=== PATIENT | female | born 1995 | race Hispanic/Latino ===

== ENCOUNTER 2018-07-11 19:27 | Emergency (ER) | payer SELFPAY ==
[~2018-07-11] VITALS: Ht 172.7 cm; Wt 131.5 kg
[~2018-07-11 19:27] MED LIST: NORCO 7.5-3251 EACH PO
--- NOTE | 2018-07-12 00:39 | Diagnostic Imaging Report ---
SACRUM COCCYX HISTORY: Tailbone pain. COMPARISON: None available. FINDINGS: Bones: No acute displaced fracture. Osseous alignment is within normal limits. Joints: The joint spaces are well-maintained. Soft tissues: The soft tissues appear unremarkable. IMPRESSION: No acute radiographic abnormality. Signed by: DR. Salbador Palomo MD on 07/12/2018 12:36 AM
[2018-07-12] MEDS ORDERED: HYDROCODONE/APAP 7.5MG-325MG 1 EA TAB PO PRN (01:00)
== END 2018-07-12 01:46 | disposition home or self-care (01) ==
LOC: ER 19:27
DX: M54.5 Low back pain (principal); M54.18 Radiculopathy, sacral and sacrococcygeal region
CPT/HCPCS: 72220; 81025; 99283